=== PATIENT | female | born 1990 ===

== ENCOUNTER 2019-05-17 18:05 | Inpatient (IN) | payer OTHER ==
[2019-05-17] MEDS ORDERED: Dinoprostone* 10 MG VAG.SUPP VAGINAL ONE (19:42)
[2019-05-17] MEDS ORDERED: Buffered Lidocaine 1% SYRIN* 1 ML/SYRINGE INTRADERM ONE (21:05)
[2019-05-17] MEDS ORDERED: Lactated Ringers 1000 ML Bag* 1,000 ML IV ONE (21:05)
--- NOTE | 2019-05-17 21:23 | HP ---
General Information - Reason for Visit Induction for cholestasis - General Information Maternal Age: 28 Grav: 1 Para: 0 SAB: 0 IEA: 0 Estimated Due Date: 06/05/19 Determined By: LMP Maternal Blood Type and Rh: O Positive - Results this Serology/RPR Result: Non-Reactive Rubella Result: Immune HBsAg Result: Negative HIV Result: Negative GBS Culture Result: Negative Past Medical History Delivery History: See Records - No previous pregnancies Pertinent Past Medical History: Non-Contributory Pertinent Past Surgical History: None Pertinent Family History: Non-Contributory - Antepartal Records Antepartal Records: Reviewed, Complicated by: - Cholestasis; language barrier, needs translation Review of Systems Constitutional: Comfortable CV Complaint: No Respiratory: Shortness of Breath: No Gastrointestinal: No Nausea/Vomiting, Normal Bowel Movement Genitourinary: No Dysuria, No Bleeding, No Leaking Fluid Musculoskeletal: No Complaint Neurological: No Headache, No Visual Changes Movement: Normal Exam Allergies/Adverse Reactions: Allergies No Known Allergies Allergy (Verified 05/17/19 18:42) BP 146/88, repeat 128/89 T 97.1 HR 57 RR 18 O2 100 - Measurements Height: 5 ft 1.5 in Weight: 141 lb Weight in lbs: 141.707250 Body Mass Index (BMI): 26.2 Pre- Weight: 120 lb Weight Gained This : 21 lbs and 0 ozs - Exam Breast: Breast Exam Deferred CVA: No CVA Tenderness Extremities: No Edema Heart: Normal Rhythm/Heart Sounds HEENT: No Significant Findings Lungs: Clear Bilaterally Rectal: Rectal Exam Deferred Reflexes: DTR 2+, - - no clonus Thyroid: - - WNL @ entry to care - Abdominal Exam Abdomen Exam: Non-Tender, Fundal Height Consistent with Dates - Ultrasound/Biophysical Profile Ultrasound Status: Not Done Targeted Exam Findings Estimated Weight: 6lb Cervical Exam: Fingertip Effacement: 60% Station: 0 Presenting Part: Vertex Membrane Status: Intact Bleeding/Discharge: None EFM Findings - External Monitor Findings Baseline Heart Rate: 140 External Monitor Findings: Accelerations Present, No Pattern of Variable or Late Decelerations, Variability Moderate Contractions: Irregular, Mild Contraction Frequency: q 3-9 min Assessment/Plan - Assessment IUP @ 37+2 weeks gestation for induction for intrahepatic cholestasis of . No evidence acidemia. Intact membranes - Plan Plan: Cervical Ripening, Admit - Anticipate Vaginal Delivery Plan Comment: PARBritney discussion cervidil for ripening using translation services. Patient in agreement. Offered therapeutic rest or sleep aid if needed; patient declines. Anticipate SVB. - Date/Time of Admission Date of Admission: 05/17/19 Time of Admission: 21:20
[2019-05-17] MEDS ORDERED: Lactated Ringers 1000 ML Bag* 1,000 ML IV SCH (22:00)
[2019-05-17 22:08] LABS: Urine Benzodiazepine Screen None Detected (None Detect); Urine Opiates Screen None Detected (None Detect)
[2019-05-18] MEDS ORDERED: Morphine 10 MG/ML VIAL (1 ml) IM PRN (00:34)
[2019-05-18] MEDS ORDERED: Promethazine INJ(RESTRICTED)* 25 MG/ML 1 ML VIAL IM PRN (00:35)
[2019-05-18] MEDS ORDERED: Misoprostol TAB* 100 MCG PO ONE (08:22)
--- NOTE | 2019-05-18 08:36 | PN ---
Progress Note - Progress Note Date of Service: 05/18/19 Note: S: Patient reports slept well, is feeling contractions but they are milder O: VE 0.5cm/70%/0 FHT 125, +accels, no decels, mod lola UCs q 2-5min BP 150/90, repeat 141/92. Afebrile A: IUP @ 37+3 weeks gestation for induction for cholestasis No evidence acidemia Membranes intact P:PARQ discussion continued cervical ripening, patient verbalizes understanding and agreement. Discussed dosing of misoprostal SL after patient has breakfast. Will plan PEC labs.
[2019-05-18] MEDS: Ursodiol CAP* 300 MG PO SCH ×2 (08:49→21:04)
[2019-05-18 09:18] LABS: Urine Appearance Clear; Urine Bilirubin Negative (Negative); Urine Blood 1+ (Negative); Urine Color Straw; Urine Glucose Negative (Negative); Urine Ketones Negative (Negative); Urine Nitrite Negative (Negative); Urine Protein Negative (Negative); Urine Specific Gravity 1.002 (1.010-1.030); Urine Urobilinogen Negative (Negative)
[2019-05-18 09:20] LABS: Urine Bacteria Absent (Absent); Urine Red Blood Cell Absent (Absent); Urine Squamous Epithelial Cell Present (Absent); Urine White Blood Cell Absent (Absent)
--- NOTE | 2019-05-18 10:56 | PN ---
Progress Note - Progress Note Date of Service: 05/18/19 SOAP: Subjective: Pt reports she slept overnight. Currently feels pain with some ctx, not with others. Partner at bedside. Pt denies headache, denies vision changes. Objective: FHR: Baseline 130/ moderate variability/ + accels/ no decels Ctx: 2-3 minutes BP: 128/82 Cervix: 1-2 cm/ 60%/ 0 station/ vtx Assessment: Pt making some cervical change, not yet in active labor. No evidence of acidemia. Pt with ICP. Has had some elevated BPs, urine negative for proteinuria. Plan: Will establish IV access and draw PEC labs. Recheck cervix in 2 hours, consider Cook catheter and/ or low dose Pitocin if unchanged.
[2019-05-18 11:59] LABS: ABS Lymphocytes 1.6 10^3/ul (1.0-4.8); ABS Monocytes 0.3 10^3/ul (0-0.8); ABS Neutrophils 2.6 10^3/ul (1.5-7.7); Eosinophil % 0.1 %; Hematocrit 39 % (35-47); Hemoglobin 13.1 g/dL (12.0-16.0); Lymphocyte % 34.6 %; Mean Corpuscular HGB Conc 34 g/dL (31-36); Mean Corpuscular Hemoglobin 32 pg (27-31); Mean Corpuscular Volume 95 fL (80-97); Mean Platelet Volume 10.3 fL (7.4-10.4); Nucleated Red Blood Cells % 0.4; Platelet Count 150 10^3/uL (150-450); Red Blood Count 4.07 10^6 /uL (3.70-4.87); Red Cell Distribution Width 14 % (10-15); White Blood Count 4.5 10^3/uL (3.5-10.8)
[2019-05-18 12:29] LABS: Albumin 3.1 g/dL (3.2-5.2); Albumin/Globulin Ratio 0.9 (1-3); BUN/Creatinine Ratio 15.4 (8-20); Calcium 8.6 mg/dL (8.6-10.3); EGFR African American 132.3 (>60); EGFR Non-African American 109.3 (>60); Globulin 3.4 g/dL (2-4); Potassium 4.1 mmol/L (3.5-5.0); Total Bilirubin 0.9 mg/dL (0.2-1.0); Total Protein 6.5 g/dL (6.4-8.9); Uric Acid 4.8 mg/dL (2.3-6.6)
--- NOTE | 2019-05-18 15:44 | PN ---
Progress Note - Progress Note Date of Service: 05/18/19 SOAP: Subjective: Pt reports UCs are the same in strength and intensity. Coping well following placement of Cook catheter Objective: Cervix unchanged (1-2 cm/ 60%/ -1 station/ vtx) UCs: Q 4 minutes FHR: Baseline 130/ moderate variability/ + accels/ no decels Assessment: Pt continues to contract but no cervical change. No evidence of acidemia. Plan: Cook catheter placed. Will start low dose Pitocin. Recheck cervix when cok catheter falls out or as needed.
[2019-05-18] MEDS ORDERED: Oxytocin in LR* 20 UNITS/1,000 ML BAG IVPB SCH (16:00)
--- NOTE | 2019-05-18 17:36 | PN ---
Progress Note - Progress Note Date of Service: 05/18/19 SOAP: Subjective: Pt reports that she had some bloody show and that she thought the balloon catheter was falling out. Objective: Cook catheter noted at introitus. Cervix: 3cm/ 60%/ -1/ vtx. UCs: 2-3 FHR: Baseline 135/ moderate variability/ + accels/ no decels Pitocin at 8 mu/min Assessment: Pt still in early labor, had some change following Cook catheter. No evidence of acidemia or chorioamnionitis. Plan: Continue Pitocin induction. WIll recheck in a few hours or as needed.
--- NOTE | 2019-05-18 23:24 | PN ---
Progress Note - Progress Note Date of Service: 05/18/19 SOAP: Subjective: Pt feeling ctx more now following AROM. Coping well. at bedside. Objective: Pitocin at 18 mu/ min UCs: 2-3 minutes FHR: Baseline 125/ moderate variability/ + accels/ no decels Cervix: 3-4 cm/ 70%/ -1 BP: 138/77, Temp: 97.0 Assessment: Pt appears to be getting into more active labor. No evidence of acidemia. Plan: Continue Pitocin augmentation. Anticipate progression to full dilation and .
--- NOTE | 2019-05-19 02:13 | PN ---
Progress Note - Progress Note Date of Service: 05/19/19 SOAP: Subjective: [] Objective: [] Assessment: [] Plan: []
--- NOTE | 2019-05-19 04:08 | PN ---
Progress Note - Progress Note Date of Service: 05/19/19 SOAP: Subjective: Pt still very uncomfortable with ctx, coping well in between. Utilizing inflated chair, dozing between ctx. at bedside. Objective: FHR: Baseline 135/ moderate variability/ + accels/ intermittent early decels UCs: Q 2-3 minutes BP: 140/84 Clear fluid No recent exam, last exam was 5cm/ 70%/ 0 station/ posterior. Assessment: Pt in active labor, continues to cope fairly well. No evidence of acidemia or chorioamnionitis. Plan: Continue Pitocin augmentation. Discussed options for pain relief, including epidural, nitrous oxide, declines at this time.
[2019-05-19] MEDS ORDERED: fentaNYL* 50 MCG/ML 2 ML VIAL (100 MCG VIAL) ONE (08:57)
[2019-05-19] MEDS ORDERED: fentaNYL* 50 MCG/ML 2 ML VIAL (100 MCG VIAL) IV SLOW PU ONE (09:00)
[2019-05-19] MEDS ORDERED: Oxytocin in LR* 20 UNITS/1,000 ML BAG IVPB ONE (09:05)
[2019-05-19] MEDS ORDERED: Witch Hazel PAD* JAR TOPICAL PRN (09:05)
[2019-05-19] MEDS ORDERED: Dibucaine 1% 28.35 GM TUBE PR PRN (09:05)
[2019-05-19] MEDS ORDERED: Misoprostol TAB* 200 MCG PR ONE (09:07)
[2019-05-19] MEDS: Ibuprofen TAB* 600 MG PO SCH ×2 (09:55→16:07)
[2019-05-19] MEDS ORDERED: Oxytocin in LR* 20 UNITS/1,000 ML BAG IVPB SCH (10:00)
[2019-05-19] MEDS ORDERED: Lactated Ringers 1000 ML Bag* 1,000 ML IV SCH (10:00)
[2019-05-19] MEDS: Ursodiol CAP* 300 MG PO SCH (10:23)
[2019-05-19] MEDS ORDERED: Lidocaine 1% INJ* 10 MG/ML 30 ML SDV ONE (11:50)
[2019-05-19] MEDS ORDERED: Misoprostol TAB* 200 MCG ONE (11:51)
--- NOTE | 2019-05-19 12:14 | PN ---
Progress Note - Progress Note Date of Service: 05/19/19 Note: Urine culture came back with moderate 25,000 enterococcus. In consultation with Dr. Serra no treatment necessary unless pt is symptomatic
[2019-05-19] MEDS: Acetaminophen TAB* 325 MG PO PRN (12:36)
[2019-05-19] MEDS ORDERED: Phenylephrine 40 MCG/ML SYRINGE ONE (13:44)
[2019-05-19] MEDS: Docusate CAP* 100 MG PO SCH ×2 (14:16→20:57)
--- NOTE | 2019-05-19 21:42 | PROCNOTE ---
[facility] OB: Delivery Note - Delivery A Date of : 05/19/19 Time of : 08:37 [place] Sex: Male Weight at : 3.402 kg Score 1 Minute: 9 Score 5 Minutes: 10 Gestational Age in Weeks and Days at Delivery: 37 Weeks and 4 Days Delivery Method: Spontaneous Vaginal Labor: Spontaneous Did Patient attempt ?: N/A, No Previous Amniotic Fluid: Clear Estimated Blood Loss: 400 Anesthesia/Analgesia: None Delivered By: Gay Doty - Nursery Level of Nursery: Regular/Bedside - Perineum Perineal Injury: 2nd Degree Perineal Repair: By Delivering Practioner - Events Delivery Events of Note: Pitocin During Labor, Post- Bleeding - Meds Given - Additional Delivery Notes Additional Delivery Notes: Pt admitted to L&D for cervical ripening and IOL at 37+ weeks gestation due to intrahepatic cholestasis of . Initially cervical ripening undertaken with Cervidil, but uterine hyperstimulation occurred after 2 hours, so it was removed. Further cervical ripening was done with Cook catheter and Pitocin was initiated. Eventually AROM resulted in active labor. Pt made steady progress, declined pain medication. Pt eventually reached full dilation and was coached in pushing. Pt pushed with strong effort and steady descent. Eventually brought to and pt coached through of the head. Shoulders tight but followed with gentle traction. Infant cried immediately, with good tone, placed on maternal abdomen. After cord pulsation ceased, cord clamped x2 and cut by infant's father. Placenta soon delivered with gentle cord traction. IV Pitocin increased to 250 cc/ hr. Following delivery of placenta heavy bleeding noted. Fundal massage performed and cytotec 800 mcg administered MD with good improvement of bleeding. Inspection of perineum revealed second degree laceration. After pt was given IV Fentanyl repair completed using 2-0 and 3-0 Vicryl suture resulting in good hemostasis and tissue approximation. Some clots expressed from lower uterine segment, after which bleeding remained minimal. Mother and infant stable at this time, anticipate normal course.
[2019-05-20] MEDS: Ibuprofen TAB* 600 MG PO SCH ×4 (00:41→22:00)
[2019-05-20] MEDS: Acetaminophen TAB* 325 MG PO PRN (03:44)
[2019-05-20] MEDS: Docusate CAP* 100 MG PO SCH ×3 (08:46→20:13)
[2019-05-20] MEDS ORDERED: Ferrous Gluconate TAB* 324 MG TAB PO SCH (09:00)
[2019-05-20 09:25] LABS: ABS Basophils 0.1 10^3/ul (0-0.2); ABS Lymphocytes 2.9 10^3/ul (1.0-4.8); ABS Monocytes 0.5 10^3/ul (0-0.8); ABS Neutrophils 7.6 10^3/ul (1.5-7.7); Eosinophil % 0.2 %; Hematocrit 34 % (35-47); Hemoglobin 11.6 g/dL (12.0-16.0); Lymphocyte % 25.8 %; Mean Corpuscular HGB Conc 34 g/dL (31-36); Mean Corpuscular Hemoglobin 32 pg (27-31); Mean Corpuscular Volume 95 fL (80-97); Nucleated Red Blood Cells % 0.1; Platelet Count 167 10^3/uL (150-450); Red Cell Distribution Width 14 % (10-15); White Blood Count 11.1 10^3/uL (3.5-10.8)
[2019-05-21] MEDS: Ibuprofen TAB* 600 MG PO SCH (05:42)
[2019-05-21 08:13] VITALS: BP 116/76
[2019-05-21] MEDS: Docusate CAP* 100 MG PO SCH (09:40)
== END 2019-05-21 13:10 | disposition home or self-care (01) | DRG 560 ==
LOC: MCHOBOUT 18:05 → MCHOB 21:28
PROVIDERS: ADMIT Midwife; ATTEND Midwife
PROC: 10E0XZZ Delivery of Products of Conception, External Approach (ICD-10-PCS; principal; 2019-05-19)
PROC: 10907ZC Drainage of Amniotic Fluid, Therapeutic from Products of Conception, Via Natural or Artificial Opening (ICD-10-PCS; 2019-05-19)
PROC: 3E0P7VZ Introduction of Hormone into Female Reproductive, Via Natural or Artificial Opening (ICD-10-PCS; 2019-05-19)
PROC: 3E033VJ Introduction of Other Hormone into Peripheral Vein, Percutaneous Approach (ICD-10-PCS; 2019-05-19)
PROC: 0KQM0ZZ Repair Perineum Muscle, Open Approach (ICD-10-PCS; 2019-05-19)
PROC: 4A1HXCZ Monitoring of Products of Conception, Cardiac Rate, External Approach (ICD-10-PCS; 2019-05-19)
PROC: 0U7C7ZZ Dilation of Cervix, Via Natural or Artificial Opening (ICD-10-PCS; 2019-05-19)
PROC: 0UC97ZZ Extirpation of Matter from Uterus, Via Natural or Artificial Opening (ICD-10-PCS; 2019-05-19)
DX: O26.62 Liver and biliary tract disorders in childbirth (principal); K83.1 Obstruction of bile duct; Z37.0 Single live birth; O72.1 Other immediate postpartum hemorrhage; O70.1 Second degree perineal laceration during delivery; O76 Abnormality in fetal heart rate and rhythm complicating labor and delivery; R82.79 Other abnormal findings on microbiological examination of urine; Z3A.37 37 weeks gestation of pregnancy
CPT/HCPCS: 36415; 80053; 80307; 81003; 81015; 84550; 85025; 86850; 86900; 86901; 87077; 87086; 87186; A9270-GY; G0480; J3010